=== PATIENT | male | born 1980 | race Caucasian/White ===

== ENCOUNTER 2018-09-08 08:06 | Inpatient (IN) | payer MEDICARE, MEDICAID ==
[~2018-09-08] VITALS: Ht 177.8 cm; Wt 109.3 kg
[~2018-09-08 08:06] MED LIST: HYDR25TA PO; LISI-661 PO; OLAN10TA3 PO; OMEP20 PO; TRAZ-220 PO
[2018-09-08] MEDS ORDERED: LISI1TAB11 PO (09:05)
[2018-09-08] MEDS ORDERED: BUSP10TA23 PO (09:05)
[2018-09-08] MEDS ORDERED: OLAN10TA3 PO (09:05)
[2018-09-08] MEDS ORDERED: HALO5TAB2 PO (09:05)
[2018-09-08] MEDS ORDERED: LOVA20 PO (09:05)
[2018-09-08] MEDS ORDERED: VILA40TA PO (09:05)
[2018-09-08] MEDS ORDERED: DIPH25 PO (09:05)
[2018-09-08 10:27] LABS: AMPHET/METH SCREEN,URINE NEGATIVE (NEGATIVE); BARBITURATE SCREEN, URINE NEGATIVE (NEGATIVE); BENZODIAZEPINES SCREEN,URINE NEGATIVE (NEGATIVE); CANNABINOID SCREEN,URINE POSITIVE (NEGATIVE); COCAINE SCREEN,URINE NEGATIVE (NEGATIVE); METHADONE SCREEN, URINE NEGATIVE (NEGATIVE); OPIATE SCREEN,URINE NEGATIVE (NEGATIVE); PHENCYCLIDINE SCREEN,URINE NEGATIVE (NEGATIVE)
[2018-09-08 10:28] LABS: BASOPHILS % (AUTO) 0.9 % (0.0-2.0); EOSINOPHILS % (AUTO) 2.3 % (1.0-6.0); HEMATOCRIT 43.1 % (41-53); HEMOGLOBIN 14.9 g/dL (13.5-17.5); LYMPHOCYTES # (AUTO) 1.9 K/uL (1.0-4.8); LYMPHOCYTES % (AUTO) 22.1 % (22.0-44.0); MEAN CORPUSCULAR HEMOGLOBIN 30.9 pg (26.0-34.0); MEAN CORPUSCULAR HGB CONC 34.5 G/dL (31.0-37.0); MEAN CORPUSCULAR VOLUME 90 fL (80-100); MONOCYTES # (AUTO) 0.7 K/uL (0.1-1.0); MONOCYTES % (AUTO) 7.6 % (2.0-9.0); NEUTROPHILS # (AUTO) 5.8 K/uL (1.8-7.7); NEUTROPHILS % (AUTO) 67.1 % (40.0-70.0); PLATELET COUNT (AUTO) 308 K/uL (150-450); RED BLOOD CELL COUNT(AUTO) 4.81 MIL/uL (4.50-5.90); RED CELL DISTRIBUTION WIDTH 13.2 % (11.5-14.5)
[2018-09-08 10:41] LABS: ANION GAP 9 mmol/L (8-16); CALCIUM, TOTAL 8.8 mg/dL (8.8-10.5); CARBON DIOXIDE 27 mmol/L (22-29); CHLORIDE 101 mmol/L (98-107); CREATININE 0.88 mg/dL (0.60-1.30); GLOMERULAR FILTR. RATE CALC > 60 mL/min (>60); GLUCOSE,RANDOM 90 mg/dL (70-110); POTASSIUM 4.3 mmol/L (3.5-5.1); SODIUM SERUM 137 mmol/L (136-145); UREA NITROGEN, BLOOD 14 mg/dL (7-18)
[2018-09-08 10:47] LABS: ALANINE AMINOTRANSFERASE 46 U/L (12-78); ALKALINE PHOSPHATASE 101 U/L (46-116); ASPARTATE AMINOTRANSFERASE 27 U/L (15-37); BILIRUBIN,TOTAL 0.3 mg/dL (0.1-1.0); TOTAL PROTEIN, SERUM 7.8 g/dL (6.4-8.2)
[2018-09-08] MEDS ORDERED: LORazepam 2 MG TABLET PO PRN (13:15)
[2018-09-08] MEDS ORDERED: HALOPERIDOL 5 MG TABLET PO PRN (13:15)
[2018-09-08] MEDS ORDERED: ZOLPIDEM TARTRATE 10 MG TABLET PO PRN (13:15)
[2018-09-08 16:58] VITALS: BP 121/81
[2018-09-08] MEDS ORDERED: PNEUMOCOCCAL VACCINE POLYVALENT 0.5 ML VIAL [PPSV23] IM ONE (18:00)
[2018-09-08] MEDS ORDERED: ACETAMINOPHEN 325 MG TABLET PO PRN (18:15)
[2018-09-08] MEDS ORDERED: IBUPROFEN 400 MG TABLET PO PRN (18:15)
[2018-09-08] MEDS ORDERED: LOPERAMIDE HCL 2 MG CAPSULE PO PRN (18:15)
[2018-09-08] MEDS ORDERED: CloNIDine HCL 0.1 MG TABLET PO PRN (18:15)
[2018-09-08] MEDS ORDERED: DOCUSATE SODIUM 100 MG CAPSULE PO PRN (18:15)
[2018-09-08] MEDS ORDERED: PETROLATUM,WHITE 71 GM JELLY TP PRN (18:15)
[2018-09-08] MEDS ORDERED: ALBUTEROL SULFATE HFA 90 MCG/PUFF 8 GM INHALER IH PRN (18:15)
[2018-09-08] MEDS ORDERED: MAG HYDROX/AL HYDROX/SIMETH ES 30 ML SUSPENSION UDCUP PO PRN (18:15)
[2018-09-08] MEDS ORDERED: MAGNESIUM HYDROXIDE SUSPENSION 30 ML UDCUP PO PRN (18:15)
[2018-09-08] MEDS ORDERED: ONDANSETRON HCL 4 MG TABLET PO PRN (18:15)
[2018-09-08] MEDS ORDERED: NICOTINE 14 MG/24 HOUR PATCH TD PRN (18:15)
[2018-09-09 06:05] VITALS: BP 118/72
[2018-09-09 08:00] VITALS: BP 121/74
[2018-09-09] MEDS: LISINOPRIL 20 MG TABLET PO SCH (08:06)
[2018-09-09] MEDS: OMEPRAZOLE 20 MG CAPSULE PO SCH (08:06)
[2018-09-09 08:21] LABS: BASOPHILS % (AUTO) 1.1 % (0.0-2.0); EOSINOPHILS % (AUTO) 4.1 % (1.0-6.0); HEMATOCRIT 42.4 % (41-53); HEMOGLOBIN 14.6 g/dL (13.5-17.5); MEAN CORPUSCULAR HEMOGLOBIN 30.8 pg (26.0-34.0); MEAN CORPUSCULAR HGB CONC 34.5 G/dL (31.0-37.0); MEAN CORPUSCULAR VOLUME 89 fL (80-100); MONOCYTES # (AUTO) 0.5 K/uL (0.1-1.0); NEUTROPHILS # (AUTO) 4.8 K/uL (1.8-7.7); NEUTROPHILS % (AUTO) 62.8 % (40.0-70.0); PLATELET COUNT (AUTO) 301 K/uL (150-450); RED BLOOD CELL COUNT(AUTO) 4.74 MIL/uL (4.50-5.90); RED CELL DISTRIBUTION WIDTH 13.3 % (11.5-14.5)
[2018-09-09 08:30] LABS: HEMOGLOBIN A1C 5.5 % (4.5-6.2)
[2018-09-09 08:46] LABS: ALANINE AMINOTRANSFERASE 44 U/L (12-78); ALKALINE PHOSPHATASE 92 U/L (46-116); ANION GAP 8 mmol/L (8-16); ASPARTATE AMINOTRANSFERASE 27 U/L (15-37); BILIRUBIN,TOTAL 0.3 mg/dL (0.1-1.0); CALCIUM, TOTAL 8.5 mg/dL (8.8-10.5); CARBON DIOXIDE 28 mmol/L (22-29); CHLORIDE 101 mmol/L (98-107); CHOL/HDL RATIO 3.8 (4.2-7.3); CHOLESTEROL 139 mg/dL (131-200); CREATININE 1.02 mg/dL (0.60-1.30); GLOMERULAR FILTR. RATE CALC > 60 mL/min (>60); GLUCOSE,RANDOM 119 mg/dL (70-110); HDL CHOLESTEROL 37 mg/dL (40-60); LDL CHOL (CALC.) 67 mg/dL (0-130); POTASSIUM 4.3 mmol/L (3.5-5.1); SODIUM SERUM 137 mmol/L (136-145); THYROID STIMULATING HORMONE 1.23 uIU/mL (0.36-3.74); TOTAL PROTEIN, SERUM 7.7 g/dL (6.4-8.2); TRIGLYCERIDES 176 mg/dL (15-150); UREA NITROGEN, BLOOD 18 mg/dL (7-18)
[2018-09-09] MEDS ORDERED: LOVASTATIN 20 MG TABLET PO SCH (09:00)
[2018-09-09] MEDS: BusPIRone HCL 10 MG TABLET PO SCH ×2 (12:38→16:32)
[2018-09-09] MEDS: GuaiFENesin/D-METHORPHAN [SUGAR-FREE] 200-20MG/10 ML SYRUP UDCUP PO PRN (14:39)
[2018-09-09 16:04] VITALS: BP 119/84
[2018-09-09] MEDS: TraZODone HCL 100 MG TABLET PO SCH (20:36)
[2018-09-09] MEDS: OLANZapine 10 MG TABLET PO SCH (20:36)
[2018-09-09] MEDS: DiphenhydrAMINE HCL 25 MG CAPSULE PO SCH (20:36)
[2018-09-10 05:12] VITALS: BP 119/86
[2018-09-10] MEDS: LISINOPRIL 20 MG TABLET PO SCH (08:43)
[2018-09-10] MEDS: BusPIRone HCL 10 MG TABLET PO SCH ×3 (08:43→16:33)
[2018-09-10] MEDS: OMEPRAZOLE 20 MG CAPSULE PO SCH (08:43)
[2018-09-10 08:47] VITALS: BP 140/75
[2018-09-10] MEDS: GuaiFENesin/D-METHORPHAN [SUGAR-FREE] 200-20MG/10 ML SYRUP UDCUP PO PRN (13:20)
[2018-09-10 16:12] VITALS: BP 118/90
[2018-09-10] MEDS: LOVASTATIN 20 MG TABLET PO SCH (16:33)
[2018-09-10] MEDS: DiphenhydrAMINE HCL 25 MG CAPSULE PO SCH (20:29)
[2018-09-10] MEDS: OLANZapine 10 MG TABLET PO SCH (20:29)
[2018-09-10] MEDS: TraZODone HCL 100 MG TABLET PO SCH (20:29)
[2018-09-11 02:11] VITALS: BP 122/78
[2018-09-11 08:00] VITALS: BP 126/82
[2018-09-11] MEDS: BusPIRone HCL 10 MG TABLET PO SCH ×3 (08:11→16:35)
[2018-09-11] MEDS: OMEPRAZOLE 20 MG CAPSULE PO SCH (08:11)
[2018-09-11] MEDS: LISINOPRIL 20 MG TABLET PO SCH (08:11)
[2018-09-11] MEDS: GuaiFENesin/D-METHORPHAN [SUGAR-FREE] 200-20MG/10 ML SYRUP UDCUP PO PRN ×2 (08:13→15:36)
[2018-09-11 16:10] VITALS: BP 111/72
[2018-09-11] MEDS: LOVASTATIN 20 MG TABLET PO SCH (16:35)
[2018-09-11] MEDS: TraZODone HCL 100 MG TABLET PO SCH (20:43)
[2018-09-11] MEDS: DiphenhydrAMINE HCL 25 MG CAPSULE PO SCH (20:43)
[2018-09-11] MEDS: OLANZapine 10 MG TABLET PO SCH (20:43)
[2018-09-12 05:59] VITALS: BP 110/70
[2018-09-12] MEDS: GuaiFENesin/D-METHORPHAN [SUGAR-FREE] 200-20MG/10 ML SYRUP UDCUP PO PRN ×2 (06:52→15:38)
[2018-09-12 08:13] LABS: AMPHET/METH SCREEN,URINE NEGATIVE (NEGATIVE); BARBITURATE SCREEN, URINE NEGATIVE (NEGATIVE); BENZODIAZEPINES SCREEN,URINE NEGATIVE (NEGATIVE); CANNABINOID SCREEN,URINE POSITIVE (NEGATIVE); COCAINE SCREEN,URINE NEGATIVE (NEGATIVE); METHADONE SCREEN, URINE NEGATIVE (NEGATIVE); OPIATE SCREEN,URINE NEGATIVE (NEGATIVE)
[2018-09-12 08:14] LABS: PHENCYCLIDINE SCREEN,URINE NEGATIVE (NEGATIVE)
[2018-09-12] MEDS: LISINOPRIL 20 MG TABLET PO SCH (08:33)
[2018-09-12] MEDS: BusPIRone HCL 10 MG TABLET PO SCH ×3 (08:33→16:29)
[2018-09-12] MEDS: OMEPRAZOLE 20 MG CAPSULE PO SCH (08:33)
[2018-09-12 08:39] LABS: APPEARANCE,URINE CLEAR (CLEAR); BILIRUBIN,URINE NEGATIVE (NEGATIVE); GLUCOSE, URINE (UA) NEGATIVE (NEGATIVE); KETONES,URINE NEGATIVE (NEGATIVE); LEUKOCYTE ESTERASE ,URINE NEGATIVE (NEGATIVE); NITRATE,URINE NEGATIVE (NEGATIVE); OCCULT BLOOD,URINE NEGATIVE (NEGATIVE); PROTEIN,URINE NEGATIVE (NEGATIVE); UROBILINOGEN,URINE 0.2 mg/dL (<=1.0)
[2018-09-12 09:02] VITALS: BP 139/85
[2018-09-12 16:15] VITALS: BP 104/67
[2018-09-12] MEDS: LOVASTATIN 20 MG TABLET PO SCH (16:29)
[2018-09-12] MEDS: OLANZapine 10 MG TABLET PO SCH (20:39)
[2018-09-12] MEDS: TraZODone HCL 100 MG TABLET PO SCH (20:39)
[2018-09-12] MEDS: DiphenhydrAMINE HCL 25 MG CAPSULE PO SCH (20:39)
[2018-09-13 06:42] VITALS: BP 110/70
[2018-09-13 08:29] VITALS: BP 121/90
[2018-09-13] MEDS: OMEPRAZOLE 20 MG CAPSULE PO SCH (08:33)
[2018-09-13] MEDS: GuaiFENesin/D-METHORPHAN [SUGAR-FREE] 200-20MG/10 ML SYRUP UDCUP PO PRN ×2 (08:33→16:01)
[2018-09-13] MEDS: LISINOPRIL 20 MG TABLET PO SCH (08:33)
[2018-09-13] MEDS: BusPIRone HCL 10 MG TABLET PO SCH ×3 (08:33→16:46)
[2018-09-13 16:06] VITALS: BP 119/78
[2018-09-13] MEDS: LOVASTATIN 20 MG TABLET PO SCH (16:46)
[2018-09-13] MEDS: DiphenhydrAMINE HCL 25 MG CAPSULE PO SCH (20:40)
[2018-09-13] MEDS: TraZODone HCL 100 MG TABLET PO SCH (20:40)
[2018-09-13] MEDS: OLANZapine 10 MG TABLET PO SCH (20:41)
[2018-09-14 06:32] VITALS: BP 120/81
[2018-09-14] MEDS: GuaiFENesin/D-METHORPHAN [SUGAR-FREE] 200-20MG/10 ML SYRUP UDCUP PO PRN (07:01)
[2018-09-14 08:19] VITALS: BP 124/79
[2018-09-14] MEDS: BusPIRone HCL 10 MG TABLET PO SCH (08:32)
[2018-09-14] MEDS: LISINOPRIL 20 MG TABLET PO SCH (08:32)
[2018-09-14] MEDS: OMEPRAZOLE 20 MG CAPSULE PO SCH (08:32)
[2018-09-14] MEDS ORDERED: OLAN10TA20 PO (09:13)
[2018-09-14] MEDS ORDERED: BUSP10TA23 PO (09:13)
[2018-09-14] MEDS ORDERED: TRAZ-220 PO (09:13)
[2018-09-14] MEDS ORDERED: LISI-662 PO (09:16)
== END 2018-09-14 10:00 | disposition home or self-care (01) | DRG 885 ==
LOC: EMS 08:07 → B2X 15:21
DX: F25.1 Schizoaffective disorder, depressive type (principal); R45.851 Suicidal ideations; E78.00 Pure hypercholesterolemia, unspecified; E78.5 Hyperlipidemia, unspecified; F10.10 Alcohol abuse, uncomplicated; F12.10 Cannabis abuse, uncomplicated; F17.200 Nicotine dependence, unspecified, uncomplicated; F31.9 Bipolar disorder, unspecified; F43.10 Post-traumatic stress disorder, unspecified; G47.33 Obstructive sleep apnea (adult) (pediatric); I10 Essential (primary) hypertension; F15.90 Other stimulant use, unspecified, uncomplicated; F41.9 Anxiety disorder, unspecified; J30.9 Allergic rhinitis, unspecified; K21.9 Gastro-esophageal reflux disease without esophagitis; K59.00 Constipation, unspecified; Z59.0 Homelessness; Z79.899 Other long term (current) drug therapy; Z82.49 Family history of ischemic heart disease and other diseases of the circulatory system; Z28.21 Immunization not carried out because of patient refusal; Z88.2 Allergy status to sulfonamides; Z71.51 Drug abuse counseling and surveillance of drug abuser; Z71.41 Alcohol abuse counseling and surveillance of alcoholic
CPT/HCPCS: 80307; 83036; 84443; 87081; G0480; Q0162